=== PATIENT | female | born 1940 | race American Indian/Alaskan Native ===

== ENCOUNTER 2017-02-27 15:01 | Emergency (ER) | payer MEDICARE, OTHER ==
[~2017-02-27] VITALS: Ht 160 cm; Wt 73.5 kg
[~2017-02-27 15:01] MED LIST: ASPIRIN EC81 MG PO; IBUPROFEN600 MG PO; LISINOPRIL40 MG PO
== END 2017-02-27 16:59 | disposition home or self-care (01) ==
LOC: ED 15:01
DX: R10.9 Unspecified abdominal pain (principal); I10 Essential (primary) hypertension; Z85.3 Personal history of malignant neoplasm of breast; Z90.12 Acquired absence of left breast and nipple; Z90.49 Acquired absence of other specified parts of digestive tract; Z79.82 Long term (current) use of aspirin; Z79.899 Other long term (current) drug therapy
CPT/HCPCS: 80053; 81001; 83690; 85025; 99284

== ENCOUNTER 2017-06-01 13:03 | Day surgery (SDC) | payer MEDICARE, OTHER ==
[~2017-06-01] VITALS: Ht 154.9 cm; Wt 76.7 kg
[2017-06-01] MEDS ORDERED: AMLODIPINE BESY10 MG PO (13:32)
--- NOTE | 2017-06-01 16:08 | NUR ---
06/01/17 1608 Maryse Lauren REPORT FROM SARKIS VELASQUEZ.
--- NOTE | 2017-06-01 19:16 | EKG ---
[facility] [address] [facility] [place], [place] [address] Signed Normal sinus rhythm Normal ECG When compared with ECG of 20-SEP-2016 19:42, No significant change was found Confirmed by FEDERICO BRO MD ([id number]) on 06/01/2017 7:16:44 PM Electronically Signed By: FEDERICO BRO MD 06/01/171915 PATIENT NAME: CRUZ DELGADO Electrocardiogram DATE OF : 38 PHYSICIAN: FEDERICO BRO MD REPORT #: [id number] REPORT IS CONFIDENTIAL AND NOT TO BE RELEASED WITHOUT AUTHORIZATION
--- NOTE | 2017-06-23 07:48 | OR ---
[facility] [address] [place], [place] [address] Signed DATE OF PROCEDURE: 06/01/17 PREOPERATIVE DIAGNOSES History of dark stools, normal colonoscopy a year ago. 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 POSTOPERATIVE DIAGNOSIS Antral gastritis, no sign of ulcer or neoplasm. PROCEDURE Esophagogastroduodenoscopy with biopsy. SURGEON: Octavio Morrison MD ANESTHESIA: Intravenous sedation, Fentanyl 100 mcg, Versed 3 mg. INDICATION A 76-year-old woman, a patient Dr. Kaiser Carrillo of [facility] who many years ago underwent laparotomy by me and found to have a subhepatic and subphrenic abscess related to perforated gallbladder and findings of a cholecystoduodenal fistula. She has an incisional hernia which has been set for repair; however, she has had pulmonary problems including pneumonia and so forth precluding a planned operation. Several weeks ago, she was noted to have melena or at least dark stools and has had a colonoscopy only a year ago which was essentially normal. On that basis, upper endoscopy was recommended to asses s for neoplasm or ulceration of the stomach. She understands the risks of bleeding, infection, and perforation and wished to proceed. FINDINGS There is no sign of ulceration or neoplasm. I did not see a cholecystoduodenal fistula at this time. There was antral gastritis, but no sign of other abnormality per se. PROCEDURE IN DETAIL The patient was brought to the endoscopy suite and placed in lateral decubitus position, given intravenous sedation to the point of slurred speech and nystagmus. A bite block was placed. Hypopharyngeal anesthesia with Hurricaine spray had been used. An [employer] video upper endoscope was passed by hypopharynx. Vocal cords were normal. Scope was advanced to the esophagus. Throughout its length, it was reasonably normal. Scope was passed to the stomach which was insufflated with air. There was bile within the stomach. The antrum had chronic inflammatory change with no sign of neoplasm proper. The pylorus was normal. Scope was passed through into the duodenum. I saw no evidence of fistula at that time. Biopsies were taken of the duodenum. The scope was withdrawn to the antrum where biopsy was once again taken retroflexed view showed reasonably normal flap valve. Electronically Signed By: OCTAVIO MORRISON MD 06/23/17 0748 PATIENT NAME: CRUZ DELGADO OPERATIVE REPORT DATE OF : 38 PHYSICIAN: OCTAVIO MORRISON MD REPORT #: [id number] REPORT IS CONFIDENTIAL AND NOT TO BE RELEASED WITHOUT AUTHORIZATION [facility] [address] [place], [place] [address] Signed There was a small nodule at the wall of the stomach more proximally which was biopsied, likely an important as the etiology. Scope was straightened, withdrawn and distal esophageal biopsies were obtained. A small submucosal nodule which was clearly benign was excised as well. Scope was removed and the patient was taken to recovery room in good condition. CONCLUDING DIAGNOSIS Lesion of upper stomach unlikely to have been source of anemia. Chronic gastritis without ulceration. PLAN Recommend PPI medication Prilosec 20 mg a day. We will make plans for incisional hernia repair at the time coming in to schedule and when she is no longer having any contraindication to operation. MD DEE Farley/Modl /[id number] cc: Kaiser Carrillo MD Electronically Signed By: OCTAVIO MORRISON MD 06/23/17 0748 PATIENT NAME: CRUZ DELGADO OPERATIVE REPORT DATE OF : 38 PHYSICIAN: OCTAVIO MORRISON MD REPORT #: [id number] REPORT IS CONFIDENTIAL AND NOT TO BE RELEASED WITHOUT AUTHORIZATION
== END 2017-06-01 16:40 | disposition home or self-care (01) ==
LOC: DS 13:03 → OPS 13:03 → DS 14:15 → OPS 16:40
PROVIDERS: Surgery
PROC: 0DB78ZX Excision of Stomach, Pylorus, Via Natural or Artificial Opening Endoscopic, Diagnostic (ICD-10-PCS; 2017-06-01)
PROC: 0DB68ZX Excision of Stomach, Via Natural or Artificial Opening Endoscopic, Diagnostic (ICD-10-PCS; 2017-06-01)
PROC: 0DB28ZX Excision of Middle Esophagus, Via Natural or Artificial Opening Endoscopic, Diagnostic (ICD-10-PCS; 2017-06-01)
PROC: 0DB38ZX Excision of Lower Esophagus, Via Natural or Artificial Opening Endoscopic, Diagnostic (ICD-10-PCS; 2017-06-01)
PROC: 0DB98ZX Excision of Duodenum, Via Natural or Artificial Opening Endoscopic, Diagnostic (ICD-10-PCS; principal; 2017-06-01 14:15)
DX: K29.50 Unspecified chronic gastritis without bleeding (principal); K21.0 Gastro-esophageal reflux disease with esophagitis; E66.9 Obesity, unspecified; R06.83 Snoring; I10 Essential (primary) hypertension; Z98.42 Cataract extraction status, left eye; Z98.41 Cataract extraction status, right eye; Z90.49 Acquired absence of other specified parts of digestive tract; Z98.890 Other specified postprocedural states; Z86.718 Personal history of other venous thrombosis and embolism; Z68.31 Body mass index [BMI] 31.0-31.9, adult
CPT/HCPCS: 88305; 88342; 93005; 93010; 99152; 99153; J2250; J3010; J7120

== ENCOUNTER 2017-08-30 22:06 | Emergency (ER) | payer MEDICARE, OTHER ==
[~2017-08-30] VITALS: Ht 154.9 cm; Wt 76.7 kg
[~2017-08-30 22:06] MED LIST changes: +AMLODIPINE BESY10 MG PO
[2017-08-30] MEDS ORDERED: VITAMIN D-32000 UNIT PO (22:19)
[2017-08-30] MEDS ORDERED: DICLOFENAC SODI75 MG PO (23:27)
--- NOTE | 2017-09-01 19:33 | EKG ---
[facility] [address] [facility] [place] [address] Signed Sinus bradycardia Otherwise normal ECG When compared with ECG of 01-JUN-2017 13:49, No significant change was found Confirmed by FEDERICO BRO MD ([id number]) on 09/01/2017 7:33:06 PM Electronically Signed By: FEDERICO BRO MD 09/01/17 193 PATIENT NAME: CRUZ DELGADO Electrocardiogram DATE OF : 38 PHYSICIAN: FEDERICO BRO MD REPORT #: [id number] REPORT IS CONFIDENTIAL AND NOT TO BE RELEASED WITHOUT AUTHORIZATION
== END 2017-08-30 23:42 | disposition home or self-care (01) ==
LOC: ED 22:06
DX: R07.9 Chest pain, unspecified (principal); I10 Essential (primary) hypertension; Z85.3 Personal history of malignant neoplasm of breast; Z90.12 Acquired absence of left breast and nipple; Z90.49 Acquired absence of other specified parts of digestive tract; Z79.899 Other long term (current) drug therapy; Z79.82 Long term (current) use of aspirin
CPT/HCPCS: 71045; 80053; 84484; 85025; 93005; 93010; 99284

== ENCOUNTER 2018-03-10 11:17 | Emergency (ER) | payer MEDICARE, OTHER ==
[~2018-03-10] VITALS: Ht 154.9 cm; Wt 77.1 kg
[~2018-03-10 11:17] MED LIST changes: +DICLOFENAC SODI75 MG PO; +VITAMIN D-32000 UNIT PO
[2018-03-10] MEDS ORDERED: ONDANSETRON ODT8 MG PO (13:19)
== END 2018-03-10 13:40 | disposition home or self-care (01) ==
LOC: ED 11:17
DX: K43.9 Ventral hernia without obstruction or gangrene (principal); I10 Essential (primary) hypertension; Z85.3 Personal history of malignant neoplasm of breast; Z79.899 Other long term (current) drug therapy; Z79.82 Long term (current) use of aspirin
CPT/HCPCS: 74022; 80053; 85025; 96361; 96374; 99284; J2405; J7030

== ENCOUNTER 2018-10-26 13:12 | Emergency (ER) | payer MEDICARE, OTHER ==
[~2018-10-26] VITALS: Ht 154.9 cm; Wt 77.1 kg
[~2018-10-26 13:12] MED LIST changes: +ONDANSETRON ODT8 MG PO
== END 2018-10-26 17:50 | disposition home or self-care (01) ==
LOC: ED 13:12
DX: K42.9 Umbilical hernia without obstruction or gangrene (principal); I10 Essential (primary) hypertension; Z79.82 Long term (current) use of aspirin; Z85.3 Personal history of malignant neoplasm of breast
CPT/HCPCS: 74177; 80053; 81001; 83690; 85025; 99284-25; Q9967

== ENCOUNTER 2018-11-22 12:33 | Emergency (ER) | payer MEDICARE, OTHER ==
[~2018-11-22] VITALS: Ht 154.9 cm; Wt 77.1 kg
--- OUTSIDE RECORDS SUMMARY | ~2018-11-22 | XMS | Clinical Summary ---
Demographics + + + | Address | [address] [place] [address] | | | [place] [address] | + + + | Home Phone | | + + + | Preferred Language | Unknown | + + + | Marital Status | Single | + + + | Religion Affiliation | 1041 | + + + | Race | Unknown | + + + | Ethnic Group | Unknown | + + + Author + + + | Author | [facility] | | | and [place] | + + + | Organization | [facility] | | | and [place] | + + + | Address | Unknown | + + + | Phone | Unavailable | + + + Support + + + + + | Name | Relationship | Address | Phone | + + + + + | Alexey Delgado | ECON | [address] | | | | | [place] | | | | | [phone] | | + + + + + | Peggy Delgado | ECON | [address] | | | | | [place] | | | | | [phone] | | + + + + + Care Team Providers + +------+ + | Care Utilization Review Rn Name | Role | Phone | + +------+ + | Kaiser Carrillo DO | PP | | + +------+ + Allergies No Known Allergies Current Medications + + +--------+---------+------+------+-------+ | Prescription | Sig. | Disp. | Refills | Star | End | Statu | | | | | | t | Date | s | | | | | | Date | | | + + +--------+---------+------+------+-------+ | amLODIPine | Take 10 mg by mouth | | | | | Activ | | (NORVASC) 10 MG | Daily. | | | | | e | | tablet | | | | | | | + + +--------+---------+------+------+-------+ | aspirin 81 mg | Take 81 mg by mouth | | | | | Activ | | chewable tablet | Daily. | | | | | e | + + +--------+---------+------+------+-------+ | ergocalciferol | Take 50,000 Units by | | | | | Activ | | (VITAMIN D-2) 50,000 | mouth Once a week. | | | | | e | | units capsule | | | | | | | + + +--------+---------+------+------+-------+ | lisinopril | Take 40 mg by mouth | | | | | Activ | | (PRINIVIL,ZESTRIL) | Daily. | | | | | e | | 40 MG tablet | | | | | | | + + +--------+---------+------+------+-------+ | nitroglycerin | Place 0.4 mg under | | | | | Activ | | (NITROSTAT) 0.4 mg | the tongue every 5 | | | | | e | | SL tablet | minutes as needed | | | | | | | | for Chest pain. | | | | | | + + +--------+---------+------+------+-------+ | atorvaSTATin | Take 1 tablet by | 30 | 5 | 01/1 | | Activ | | (LIPITOR) 20 mg | mouth nightly. | tablet | | 8/20 | | e | | tabletIndications: | | | | 19 | | | | Arteriosclerotic | | | | | | | | vascular disease | | | | | | | + + +--------+---------+------+------+-------+ Active Problems + + + | Problem | Noted Date | + + + | Vitamin D deficiency | 03/16/2018 | + + + | Chest pain | 03/16/2018 | + + + + + | Overview: Stress test on 07/03/18 shows, exercise EKG is | | negative, blood pressure response is hypertensive, patient has | | shortness of breath but no chest pain during procedure, there is | | no arrhythmia during procedure, exercise tolerance is diminished | | for age, abnormal exercise sestamibi myocardial perfusion imaging | | study with a small size, partially reversible defect of a mild | | severity in the distal anterior and anteroapical region, this | | suggests potential cardiac ischemia of a mid left anterior | | descending artery territories, normal left ventricular size, wall | | thickness and motion. Preserved left ventricular systolic | | function, LVEF by gated SPECT is 74%. | + + + + + | Essential hypertension | 03/16/2018 | + + + | Knee pain | 03/16/2018 | + + + | Knee joint effusion | 03/16/2018 | + + + | Pes anserinus bursitis | 03/16/2018 | + + + + + | Overview: Right knee. | + + + + + | Osteopenia | 03/16/2018 | + + + | Incisional hernia | 03/16/2018 | + + + | Dizziness | 03/16/2018 | + + + | Lesion of skin of face | 03/16/2018 | + + + | Neck pain | 03/16/2018 | + + + | Cellulitis of lower leg | 03/16/2018 | + + + | Leg edema | 03/16/2018 | + + + | Hernia of anterior abdominal wall | 03/16/2018 | + + + | Melena | 03/16/2018 | + + + | Contusion of chest | 03/16/2018 | + + + | Arteriosclerotic vascular disease | 03/16/2018 | + + + + + | Overview: Abnormal diffuse intimal thickening of artery | + + + + + | Bradycardia | 03/16/2018 | + + + + + | Overview: EKG done on 03/06/18 shows sinus bradycardia. 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) | 03/16/2018 | + + + + + | Overview: Left breast cancer 01/28/2003 | + + Encounters +--------+---------+ + + + | Date | Type | Specialty | Care Team | Description | +--------+---------+ + + + | 09/07/ | Office | | Kenneth Atkins, | Essential | | 2019 | Visit | | MD | hypertension | | | | | | (Primary Dx); Chest | | | | | | pain, unspecified | | | | | | type; | | | | | | Arteriosclerotic | | | | | | vascular disease | +--------+---------+ + + + from Last 3 Months Family History + +------+ + + | Relation | Name | Status | Comments | + +------+ + + | Father | | | | + +------+ + + | Mother | | | | + +------+ + + Social History + +-------+ +--------+------+ | Tobacco Use | Types | Packs/Day | Years | Date | | | | | Used | | + +-------+ +--------+------+ | Never Smoker | | | | | + +-------+ +--------+------+ + +---+---+---+ | Smokeless Tobacco: | | | | | Never Used | | | | + +---+---+---+ + + +---------+ + | Alcohol Use | Drinks/We | oz/Week | Comments | | | ek | | | + + +---------+ + | No | | | | + + +---------+ + + + + | Sex Assigned at | Date Recorded | | | | + + + | Not on file | | + + + Last Filed Vital Signs + + + + | Vital Sign | Reading | Time Taken | + + + + | Blood Pressure | 126/66 | 09/07/20187 PST | + + + + | Pulse | 64 | 09/07/20181316 PST | + + + + | Temperature | - | - | + + + + | Respiratory Rate | 16 | 09/07/20181316 PST | + + + + | Oxygen Saturation | - | - | + + + + | Inhaled Oxygen | - | - | | Concentration | | | + + + + | Weight | 76.8 kg (169 lb 5 | 09/07/20181316 PST | | | oz) | | + + + + | Height | 160 cm (5' 3") | 09/07/20181316 PST | + + + + | Body Mass Index | 29.99 | 09/07/20181316 PST | + + + + Plan of Treatment +--------+---------+ + + + | Date | Type | Specialty | Care Team | Description | +--------+---------+ + + + | 03/07/ | Office | | Kenneth Atkins, | | | 2018 | Visit | | MD Demario Adam | | | | | | [place], | | | | | | [place] [address] | | | | | | [phone] | | | | | | | | +--------+---------+ + + + + + + + + | Health Maintenance | Due Date | Last Done | Comments | + + + + + | Vaccine: Zoster (2 | | 07/20/2012 | | | of 3) | 3 | | | + + + + + | Adult Annual | | | | | Wellness Visit | 8 | | | + + + + + | Vaccine: | | 07/20/2012, 04/18/2011, | | | Dtap/Tdap/Td (2 - | 2 | 06/20/1996 | | | Td) | | | | + + + + + | Vaccine: | Completed | 06/22/2016, 04/18/2011, | | | Pneumococcal 65+ | | 06/20/1996 | | | High/Highest Risk | | | | + + + + + | Vaccine: Influenza | Completed | 05/18/2018, 05/27/2016, | | | | | 05/22/2015, Additional history | | | | | exists | | + + + + + Results Not on filefrom Last 3 Months Insurance + +--------+ +--------+ +---------+ | Payer | Benefi | Subscriber | Type | Phone | Address | | | t Plan | ID | | | | | | / | | | | | | | Group | | | | | + +--------+ +--------+ +---------+ | MEDICARE | MEDICA | [id number] | Medica | [phone] | | | RE | | re | [phone] | | | | PART A | | | | | | | AND B | | | | | + +--------+ +--------+ +---------+ | [place] | MEDICA | [id number] | Medica | [phone] | | | ID | | id | [phone] | | | | [place] | | | | | + +--------+ +--------+ +---------+ | [facility] | IHS | [id number] | Indemn | | | | SERVICE | YELLOW | | ity | | | | | [place] | | | | | + +--------+ +--------+ +---------+ + +--------+ +--------+ + + | Guarantor Name | Accoun | Relation to | Date | Phone | Billing Address | | | t Type | Patient | of | | | | | | | | | | + +--------+ +--------+ + + | CRUZ DELGADO | Person [birth year] Self [birth year] | Home: | [address] | | | al/Fam | | 1941 | [phone] | [address] [place] | | | [place] | | [phone] | + +--------+ +--------+ + +
--- OUTSIDE RECORDS SUMMARY | ~2018-11-22 | XMS | Encounter Summary ---
Demographics + + + | Address | [address] [place] [address] | | | [place] [address] | + + + | Home Phone | | + + + | Preferred Language | Unknown | + + + | Marital Status | Single | + + + | Sikh Affiliation | 1041 | + + + | Race | Unknown | + + + | Ethnic Group | Unknown | + + + Author + + + | Author | [facility] | | | and [place] | + + + | Organization | [facility] | | | and [place] | + + + | Address | Unknown | + + + | Phone | Unavailable | + + + Support + + + + + | Name | Relationship | Address | Phone | + + + + + | Alexey Hunter | ECON | [address] | | | | | [place] | | | | | [address] | | + + + + + | Peggy Hunter | ECON | [address] | | | | | [place] | | | | | [address] | | + + + + + Care Team Providers + +------+ + | Care Byproducts Extractor Name | Role | Phone | + +------+ + | Kaiser Carrillo DO | PCP | | + +------+ + Reason for Visit + + + | Reason | Comments | + + + | Follow-up | | + + + | Chest Pain | | + + + Follow Up (Routine) +--------+--------+ + + + + | Status | Reason | Specialty | Diagnoses / | Referred By | Referred To | | | | | Procedures | Contact | Contact | +--------+--------+ + + + + | Closed | | Cardiology | Diagnoses | [place], | [place], | | | | | | Kaiser M, DO | MD Kenneth | | | | | Bradycardia, | [address] | [address] | | | | | unspecified | [address] | [address] | | | | | | [address] | [place], | | | | | Unspecified | [place], | [place] [address] | | | | | atherosclero | [place] [address] | Phone: | | | | | sis | Phone: | [phone] | | | | | Essential | [phone] | Fax: | | | | | (primary) | Fax: | [phone] | | | | | hypertension | [phone] | | | | | | Procedures | | | | | | | FUP | | | +--------+--------+ + + + + Encounter Details +--------+---------+ + + + | Date | Type | Department | Care Team | Description | +--------+---------+ + + + | 09/07/ | Office | [facility] | Kenneth Atkins, | Essential | | 2019 | Visit | CARDIOLOGY [address] | hypertension | | | | [address] [place], | [place], | (Primary Dx); Chest | | | [place] [address] | [place] [address] | pain, unspecified | | | | [phone] | [phone] | type; | | | | | | Arteriosclerotic | | | | | | vascular disease | +--------+---------+ + + + Social History + +-------+ +--------+------+ [...] on file | | + + + as of this encounter Last Filed Vital Signs + + + + | Vital Sign | Reading | Time Taken | + + + + | Blood Pressure | 126/66 | 09/07/20187 PST | + + + + | Pulse | 64 | 09/07/20187 PST | + + + + | Temperature | - | - | + + + + | Respiratory Rate | 16 | 09/07/20187 PST | + + + + | Oxygen Saturation | - | - | + + + + | Inhaled Oxygen | - | - | | Concentration | | | + + + + | Weight | 76.8 kg (169 lb 5 | 09/07/2018 1317 PST | | | oz) | | + + + + | Height | 160 cm (5' 3") | 09/07/2018 1317 PST | + + + + | Body Mass Index | 29.99 | 09/07/2018 1317 PST | + + + + in this encounter Instructions Patient Instructions - Catherine Álvarez RN - 09/07/2018 1330 PST Start Atorvastatin (Lipitor) 20mg - take one tablet by mouth one time daily in the evening Blood test: Fasting- 12 hours prior to test, no food, no caffiene, water is ok Date Due: 3 months after start of Atorvastatin Where to go for labs: Lab of your choice, please see lab orders, take them with you to the lab. Follow up appointment: 6 months Provider: Kenneth Atkins MD Date: Check-In Time: in this encounter Progress Notes Kenneth Atkins MD - 09/07/2018 1330 PSTFormatting of this note may be different from th e original. PATIENT NAME: Saloni Hunter : 1940: AGE: 77 y.o. PRIMARY CARE: Kaiser Carrillo DO OUTPATIENT FOLLOW UP VISIT Date of Service: 09/07/2018 HISTORY OF PRESENT ILLNESS: Saloni Hunter is a 77 y.o. female with a history of chest pain and essential hypertension. She is being seen today for follow up chest pain. She was last seen 06/07/2018 at which time patient was scheduled for exercise SPECT MPI. S yg that time, patient reports some shortness of breath on exertion i.e. walking. However, there is no further chest pain. Patient is physically active chopping wood and walking reg ularly. There is no chest pain or chest discomfort both at rest and on exertion. There is no palpitations, dizziness or lightheadedness. There is no ankle or leg swelling. Patient can sleep on one pillow at night without difficulty breathing. MEDICAL, SURGICAL, AND PERSONAL HISTORY Past Medical, Surgical, Family, and Social History are reviewed in EPIC. 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 aspirin 81 mg chewable tablet Take 81 mg by mouth Daily. ergocalciferol (VITAMIN D-2) 50,000 units capsule Take 50,000 Units by mouth Once a wee k. lisinopril (PRINIVIL,ZESTRIL) 40 MG tablet Take 40 mg by mouth Daily. nitroglycerin (NITROSTAT) 0.[address] 0.4 mg under the tongue every 5 minute s as needed for Chest pain. No current facility-administered medications for this visit. ALLERGIES No Known Allergies ROS Review of Systems Constitutional: Negative for malaise/fatigue. Respiratory: Positive for shortness of breath. Cardiovascular: Negative for chest pain, palpitations and leg swelling. Neurological: Positive for dizziness. Negative for weakness. Lightheaded = No OBJECTIVE: PHYSICAL EXAM BP 126/66 | Pulse 64 | Resp 16 | Ht 1.6 m (5' 3") | Wt 76.8 kg (169 lb 5 oz) | BMI 29. 99 kg/m Physical Exam Constitutional: She is oriented to person, place, and time. She appears well-developed and well-nourished. Elderly female individual arrives alone, no acute distress. Neck: Normal carotid pulses and no JVD present. Carotid bruit is not present. Cardiovascular: Normal rate, regular rhythm, S1 normal, S2 normal, normal heart sounds and intact distal pulses. PMI is not displaced. Exam reveals no gallop and no friction rub. No murmur heard. Pulses: Carotid pulses are 2+ on the right side, and 2+ on the left side. Posterior tibial pulses are 2+ on the right side, and 2+ on the left side. Pulmonary/Chest: Effort normal and breath sounds normal. No accessory muscle usage. No resp iratory distress. She has no wheezes. She has no rhonchi. She has no rales. Abdominal: Soft. Normal appearance and normal aorta. She exhibits no abdominal bruit. There is no hepatosplenomegaly. There is no tenderness. Musculoskeletal: She exhibits no edema. Neurological: She is alert and oriented to person, place, and time. Gait normal. Skin: Skin is warm and dry. No cyanosis. Nails show no clubbing. Psychiatric: She has a normal mood and affect. Her mood appears not anxious. She does not e xhibit a depressed mood. LAB RESULTS reviewed during visit today primarily from [facility]: LIPID No results found for: CHOL, TRIG, HDL, LDL, CHOLHDL, LDLEX, HDLEX, TRIGEX, CHOLEX CHEMISTRY No results found for: GLU, GLUEX, NA, NAEX, K, KEX, CL, CLEX, CO2, CO2EX, CALCIUM, ALKPHOS, AST, ASTEX, ALT, ALTEX, BILITOT, CREA, BUN, EGFR, EGFREX, CREEX HEMATOLOGY No results found for: WBC, WBCEX, HGB, HGBEX, HCT, HCTEX, PLT, PLTEX Above data and testing is reviewed this visit; testing below is historical data unless othe rwise specified. ASSESSMENT: 1. Chest pain/coronary artery disease A. Stress test on 07/03/18 shows, exercise EKG is negative, blood pressure response is hyp ertensive, patient has shortness of breath but no chest pain during procedure, there is no a rrhythmia during procedure, exercise tolerance is diminished for age, abnormal exercise sest amibi myocardial perfusion imaging study with a small size, partially reversible defect of a mild severity in the distal anterior and anteroapical region, this suggests potential cardi ac ischemia of a mid left anterior descending artery territories, normal left ventricular si ze, wall thickness and motion. Preserved left ventricular systolic function, LVEF by gated SPECT is 74%. B. Today, patient reports some shortness of breath on exertion i.e. walking. However, the re is no further chest pain. Patient is physically active chopping wood and walking regular ly. There is no signs and symptoms of overt congestive heart failure. She is in a class I of [place] [employer] functional class. There is no fluid retention on physical e xamination. 2. Essential hypertension A. Her blood pressure in office today is well controlled. 3. Sleep disorder breathing A. Patient scored 4 out of 8 on stop bang questionnaire. B. She continues to not sleep well but will work on doing yoga. PLAN: 1. Start atorvastatin 20 mg once a day cause of the abnormal stress test. 2. Check LFT and lipid panel in three months. 3. I recommend mind awareness and yoga. 4. I recommend a therapeutic lifestyle change including walking 30 minutes a day, choosing healthy choices of diet and 7 hours of high quality sleep a night. 5. Follow-up in 6 months or sooner with concerns. I, Mala Horta, am acting as a scribe on behalf of, and in the presence of Kenneth gillette MD. I have reviewed and edited this note. Mala Horta, Railroad Auditor 09/07/2018 I, Kenneth Atkins MD, personally performed the services described in this documentation, as scribed in my presence and it is both accurate and complete. Mala Horta, Med Ass t 09/07/2018 13:20 Electronically signed by: Kenneth Atkins MD [facility] 09/07/2018 Portions of this chart may have been created with [employer] voice recognition software. Occasi onal wrong-word or sound-alike substitutions may have occurred due to the inherent gaspar itations of voice recognition software. Please read the chart carefully and recognize, using context, where these substitutions have occurred in this encounter Plan of Treatment +--------+---------+ + + + | Date | Type | Specialty | Care Team | Description | +--------+---------+ + + + | 03/07/ | Office | Cardiology | Kenneth Atkins, | | | 2018 | Visit | | MD Demario Adam | | | | | | [place], | | | | | | [place] [address] | | | | | | [phone] | | | | | | | | +--------+---------+ + + + + +--------+ + + | Name | Priori | Associated Diagnoses | Order Schedule | | | ty | | | + +--------+ + + | Lipid Panel | Routin | Arteriosclerotic | Expected: | | | e | vascular disease | 2018, Expires: | | | | | 09/07/2019 | + +--------+ + + | Hepatic Function Panel | Routin | Arteriosclerotic | Expected: | | | e | vascular disease | 2018, Expires: | | | | | 09/07/2019 | + +--------+ + + as of this encounter Visit Diagnoses + + | Diagnosis | + + | Essential hypertension - Primary | + + | Unspecified essential hypertension | + + | Chest pain, unspecified type | + + | Arteriosclerotic vascular disease | + + | Generalized and unspecified atherosclerosis | + +
--- OUTSIDE RECORDS SUMMARY | ~2018-11-22 | XMS | Encounter Summary ---
Demographics + + + | Address | [address] [place] [address] | | | [place] [address] | + + + | Home Phone | | + + + | Preferred Language | Unknown | + + + | Marital Status | Single | + + + | Anglican Affiliation | 1041 | + + + | Race | Unknown | + + + | Ethnic Group | Unknown | + + + Author + + + | Author | [facility] | | | and [place] | + + + | Organization | [facility] | | | and [place] | + + + | Address | Unknown | + + + | Phone | Unavailable | + + + Support + + + + + | Name | Relationship | Address | Phone | + + + + + | Alexey Hunter | ECON | [address] | | | | | [place] | | | | | [address] | | + + + + + | Peggy Hunter | ECON | [address] | | | | | [place] | | | | | [address] | | + + + + + Care Team Providers + +------+ + | Care Block Engraver Name | Role | Phone | + [...] | | | | | Bradycardia, | [address] | [address] | | | | | unspecified | [address] | [address] | [address] | [place], | | | | | Unspecified | [place], | [place] [address] | | | | | atherosclero | [place] [address] | Phone: | | | | | sis | Phone: | [phone] | | | | | Essential | [phone] | Fax: | | | | | (primary) | Fax: | [phone] | | | | | hypertension | [phone] | | | | | | Procedures | | | | | | | FUP | | | +--------+--------+ + + + + Encounter Details +--------+---------+ + + + | Date | Type | Department | Care Team | Description | +--------+---------+ + + + | 09/07/ | Office | [facility] | Kenneth Atkins, | Essential | | 2019 | Visit | CARDIOLOGY [address] | hypertension | | | | [place] [place], | [place], | (Primary Dx); Chest | | | | [place] [address] | [place] [address] | pain, unspecified | | | | [phone] | [phone] | type; | | | | | [...] RESULTS reviewed during visit today primarily from [facility]: LIPID No results found for: CHOL, [...] She is in a class I of [place] [employer] functional class. There is no [...] reviewed and edited this note. Mala Horta, Lacemaker 09/07/2018 I, Kenneth Atkins MD, personally performed the services described in this documentation, as scribed in my presence and it is both accurate and complete. Mala Horta, Med Ass t 09/07/2018 13:20 Electronically signed by: Kenneth Atkins MD [facility] 09/07/2018 Portions of this chart may have been created with [employer] voice recognition software. Occasi onal wrong-word or [...] [place], | | | | | | [place] [address] | | | | | | [phone] | | | | | | | [...]
--- OUTSIDE RECORDS SUMMARY | ~2018-11-22 | XMS | Clinical Summary ---
Demographics + + + | Address | [address] [place] [address] | | | [place] [address] | + + + | Home Phone | | + + + | Preferred Language | Unknown | + + + | Marital Status | Single | + + + | Congregation Affiliation | 1041 | + + + | Race | Unknown | + + + | Ethnic Group | Unknown | + + + Author + + + | Author | [facility] | | | and [place] | + + + | Organization | [facility] | | | and [place] | + + + | Address | Unknown | + + + | Phone | Unavailable | + + + Support + + + + + | Name | Relationship | Address | Phone | + + + + + | Alexey [place] | ECON | [address] | | | | | [place] | | | | | [address] | | + + + + + | Peggy [place] | ECON | [address] | | | | | [place] | | | | | [address] | | + + + + + Care Team Providers + +------+ + | Care Apprenticeship Training Representative Name | Role | Phone | + [...] [place], | | | | | | [place] [address] | | | | | | [phone] | | | | | | | [...] +--------+ +---------+ | MEDICARE | MEDICA | [id number] | Medica | [phone] | | | RE | | re | [phone] | | | | PART A | | | | | | | AND B | | | | | + +--------+ +--------+ +---------+ | [place]ID [place] | MEDICA | [id number] | Medica | [phone] | | | ID | | id | [phone] | | | | [place] | | | | | + +--------+ +--------+ +---------+ | [facility] | IHS | [id number] | Indemn | | | | SERVICE [...] | Self [birth year] Home: | [address] | | | al/Fam | | 1941 | [phone] | [address] [place] | | | [place] | | | [phone] | [phone] | + +--------+ +--------+ + +
--- OUTSIDE RECORDS SUMMARY | 2018-11-22 12:36 | XMS ---
PreManage Notification: CRUZ DELGADO Security Commercial Credit Officer Events No recent Security Events currently on file CRITERIA MET - [facility] - 2 Visits in 30 Days CARE PROVIDERS ESPERANZA CEJA [facility] 03/12/2018-Current PHONE: Unknown DR ESPERANZA CEJA Primary Care Current PHONE: [phone] Selena has no Care Guidelines for this patient. Carlos A VISIT COUNT (12 MO.) [address] [place] [address] TOTAL 5 NOTE: Visits indicate total known visits. ED/UCC VISIT TRACKING (12 MO.) 11/22/2018 12:33 [facility] [place] TYPE: Emergency COMPLAINT: - ABD PAIN 10/26/2018 13:12 [facility] [place] [place] TYPE: Emergency COMPLAINT: - ABD [id number] DIAGNOSES: - Lower abdominal pain, unspecified - Essential (primary) hypertension - Umbilical hernia without obstruction or gangrene - skilled nursing (current) use of aspirin - Personal history of malignant neoplasm of breast 06/01/2018 12:16 [place] TYPE: Emergency COMPLAINT: - ABD PAIN DIAGNOSES: - Ventral hernia without obstruction or gangrene - Personal history of malignant neoplasm of breast - Unspecified abdominal pain - Essential (primary) hypertension - long term care administrator (current) use of systemic steroids - Other exterminator helper termite (current) drug therapy 03/10/2018 11:18 [place] TYPE: Emergency COMPLAINT: - ABD PAIN DIAGNOSES: - Other detention (current) drug therapy - skilled nursing (current) use of aspirin - Ventral hernia without obstruction or gangrene - Upper abdominal pain, unspecified - Personal history of malignant neoplasm of breast - Essential (primary) hypertension 03/08/2018 09:02 [facility]RE[facility] [place] TYPE: Emergency COMPLAINT: - ABD PAIN DIAGNOSES: - Essential (primary) hypertension - Gastritis, unspecified, without bleeding - Unspecified abdominal pain - Other exterminator helper termite (current) drug therapy INPATIENT VISIT TRACKING (12 MO.) No inpatient visits to display in this time frame [email or web address]
[2018-11-22] MEDS ORDERED: NAPROXEN500 MG PO (12:50)
== END 2018-11-22 14:23 | disposition home or self-care (01) ==
LOC: ED 12:33
DX: K42.9 Umbilical hernia without obstruction or gangrene (principal); I10 Essential (primary) hypertension; Z85.3 Personal history of malignant neoplasm of breast; Z90.12 Acquired absence of left breast and nipple; Z79.82 Long term (current) use of aspirin; Z79.899 Other long term (current) drug therapy
CPT/HCPCS: 74022; 99284-25

== ENCOUNTER 2019-03-31 12:35 | Emergency (ER) | payer MEDICARE, MEDICAID, OTHER ==
[~2019-03-31] VITALS: Ht 154.9 cm; Wt 77.1 kg
[~2019-03-31 12:35] MED LIST changes: +NAPROXEN500 MG PO
--- OUTSIDE RECORDS SUMMARY | 2019-03-31 12:38 | XMS ---
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 Care History Medical/Surgical 11/23/2018 [facility] \T\middot;\T\nbsp; PATIENT IS A [employer] MEMBER. \T\middot;\T\nbsp; PLEASE REFER PATIENT TO [facility] FOR NON EMERGENT MEDICAL NEEDS. \T\middot;\ T\nbsp; [facility] CAN SEE PATIENTS SAME DAY FOR APTS IF PATIENT CALLS FIRST THING IN THE MORNING. E.D. VISIT COUNT (12 MO.) 4 [facility] [place] TOTAL 4 NOTE: Visits indicate total known visits. ED/UCC VISIT TRACKING (12 MO.) 03/31/2019 12:36 [facility] [place] TYPE: Emergency COMPLAINT: - ABD PAIN 11/22/2018 12:33 [facility] [place] TYPE: Emergency COMPLAINT: - ABD PAIN DIAGNOSES: - Other mcc (current) drug therapy - Essential (primary) hypertension - Unspecified abdominal pain - Acquired absence of left breast and nipple - Umbilical hernia without obstruction or gangrene - MCC (current) use of aspirin - Personal history of malignant neoplasm of breast 10/26/2018 13:12 [facility] [place] TYPE: Emergency COMPLAINT: - ABD [id number] DIAGNOSES: - Lower abdominal pain, unspecified - Essential (primary) hypertension - Umbilical hernia without obstruction or gangrene - MCC (current) use of aspirin - Personal history of malignant neoplasm of breast 06/01/2018 12:16 [facility] [place] TYPE: Emergency COMPLAINT: - ABD PAIN DIAGNOSES: - Ventral hernia without obstruction or gangrene - Personal history of malignant neoplasm of breast - Unspecified abdominal pain - Essential (primary) hypertension - MCC (current) use of systemic steroids - Other meterman (current) drug therapy INPATIENT VISIT TRACKING (12 MO.) No inpatient visits to display in this time frame [email or web address]
[2019-03-31] MEDS ORDERED: LIPITOR20 MG PO (12:58)
== END 2019-03-31 17:05 | disposition home or self-care (01) ==
LOC: ED 12:35
DX: R10.9 Unspecified abdominal pain (principal); K43.9 Ventral hernia without obstruction or gangrene; I10 Essential (primary) hypertension; Z85.3 Personal history of malignant neoplasm of breast; Z79.899 Other long term (current) drug therapy; Z79.82 Long term (current) use of aspirin
CPT/HCPCS: 74022; 80053; 81001; 83690; 85025; 99284-25

== ENCOUNTER 2024-05-03 11:12 | Emergency (ER) | payer MEDICARE, MEDICAID, OTHER ==
[~2024-05-03] VITALS: Ht 154.9 cm; Wt 64.5 kg
[~2024-05-03 11:12] MED LIST changes: +LIPITOR20 MG PO
[2024-05-03 11:39] LABS: HEMOGLOBIN 10.8 g/dL (12.0-18.0)
[2024-05-03 11:41] LABS: BASOPHILS 1.5 % (0-2); EOSINOPHILS 1.1 % (0-6); HEMATOCRIT 33.8 % (35.0-50.0); LYMPHOCYTES 20.3 % (24-44); MCH 27.8 (27-36); MONOCYTES 7.7 % (0-12); NEUTROPHILS 69.4 % (39-80); PLATELET COUNT 114 K/uL (140-440); RBC 3.88 M/ul (4.3-5.7); RDW 16.3 (10.5-15.0)
[2024-05-03 12:01] LABS: ALBUMIN/GLOBULIN RATIO 0.75 (1.1-2.4); ANION GAP 11.2 (7-21); BILIRUBIN, TOTAL 0.4 ng/dL (0.2-1.0); BUN/CREATININE RATIO 20.95 (6.0-28.6); CALCIUM 8.5 mg/dL (8.5-10.1); CREATININE, SERUM 1.05 mg/dL (0.55-1.02); MAGNESIUM 1.9 mg/dL (1.8-2.4); POTASSIUM 4.2 mmol/L (3.5-5.1); TSH, 3RD GENERATION 2.628 uIU/mL (0.358-3.740)
[2024-05-03 15:50] VITALS: BP 136/63
--- NOTE | 2024-05-03 22:11 | EKG ---
[facility] [address] [place] [address] Signed Sinus rhythm with premature atrial complexes in a pattern of bigeminy Otherwise normal ECG When compared with ECG of 30-AUG-2017 22:13, Sinus rhythm has replaced Sinus bradycardia Confirmed by Dianelys Guthrie MD () on 05/03/2024 10:10:50 PM Electronically Signed By: DIANELYS GUTHRIE MD 05/03/242210 PATIENT NAME: CRUZ DELGADO Electrocardiogram DATE OF : 38 PHYSICIAN: DIANELYS GUTHRIE MD REPORT #: [id number] REPORT IS CONFIDENTIAL AND NOT TO BE RELEASED WITHOUT AUTHORIZATION
--- NOTE | 2024-05-06 13:31 | EKG ---
[facility] [address] [facility] [place], [place] [address] Signed EKG completed, results pending confirmation PATIENT NAME: CRUZ DELGADO Electrocardiogram DATE OF : 38 PHYSICIAN: PRELIMINARY REPORT #: [id number] REPORT IS CONFIDENTIAL AND NOT TO BE RELEASED WITHOUT AUTHORIZATION
== END 2024-05-03 15:50 | disposition home or self-care (01) ==
LOC: ED 11:12
PROVIDERS: Emergency Medicine
DX: R55 Syncope and collapse (principal); I10 Essential (primary) hypertension; Z79.82 Long term (current) use of aspirin; Z79.899 Other long term (current) drug therapy
CPT/HCPCS: 36415; 80053; 83735; 84443; 84484; 85025; 93005; 93010; 99284